=== PATIENT | male | born 1965 | race Caucasian/White ===

== ENCOUNTER → 2018-11-19 | Outpatient (CLI) | payer BC ==
[~2018-11-19] MED LIST: ASPI-496 PO; METO50TA82 PO
== END | disposition home or self-care (01) ==
LOC: CVU 06:59
PROVIDERS: ATTEND Physician Assistant
DX: I21.19 ST elevation (STEMI) myocardial infarction involving other coronary artery of inferior wall (principal); I25.89 Other forms of chronic ischemic heart disease; I08.3 Combined rheumatic disorders of mitral, aortic and tricuspid valves; I10 Essential (primary) hypertension; Z87.891 Personal history of nicotine dependence
CPT/HCPCS: 0399T; 78452; 93017; 93306; A9502

== ENCOUNTER 2018-12-08 09:47 | Day surgery (SDC) | payer BC ==
[~2018-12-08] VITALS: Ht 177.8 cm; Wt 84.1 kg
[2018-12-08 10:25] VITALS: BP 137/89
[2018-12-08] MEDS ORDERED: IRBE150T25 PO (10:31)
[2018-12-08] MEDS ORDERED: ROSU10TA2 PO (10:31)
[2018-12-08 10:52] LABS: ANION GAP 5 mmol/L (5-15); CALCIUM 8.6 mg/dL (8.5-10.1); CHLORIDE 110 mmol/L (98-107); CREATININE 1.28 mg/dL (0.7-1.3)
[2018-12-08] MEDS ORDERED: SODIUM CHLORIDE 0.9% 1,000 ML IV SCH ×2 (11:00→14:01)
[2018-12-08] MEDS ORDERED: FENTANYL PF 100 MCG/2ML ONE ×2 (11:53→12:55)
[2018-12-08] MEDS ORDERED: TICAGRELOR 90 MG TABLET ONE (11:53)
[2018-12-08] MEDS ORDERED: VERAPAMIL 2.5 MG/ML, 2ML ONE (11:53)
[2018-12-08] MEDS ORDERED: HEPARIN 1,000 UNITS/ML, 10ML ONE (11:54)
[2018-12-08] MEDS ORDERED: NITROGLYCERIN 5 MG/ML, 10ML ONE (11:54)
[2018-12-08] MEDS ORDERED: LIDOCAINE 2%, 20ML ONE (11:54)
[2018-12-08] MEDS ORDERED: BIVALIRUDIN 250 MG ONE (11:54)
[2018-12-08] MEDS ORDERED: MIDAZOLAM 1 MG/ML, 5ML ONE (11:54)
== END 2018-12-08 16:45 | disposition home or self-care (01) ==
LOC: CACL 09:47
PROVIDERS: ATTEND Internal Medicine Cardiovascular Disease
DX: I20.9 Angina pectoris, unspecified (principal); K29.70 Gastritis, unspecified, without bleeding; I34.0 Nonrheumatic mitral (valve) insufficiency; E87.5 Hyperkalemia; I10 Essential (primary) hypertension
CPT/HCPCS: 36415; 80048; 93458; 99156; C1769; C1894; J0583; J1644; J2250; J3010; J3490; Q9967